=== PATIENT | male | born 1970 | race Caucasian/White ===

== ENCOUNTER 2017-05-23 13:20 | Inpatient (IN) | payer OTHER ==
[~2017-05-23] VITALS: Ht 165.1 cm; Wt 75.5 kg
[~2017-05-23 13:20] MED LIST: Bactrim,Septra DS 80 PO; DAZIDOX20 MG PO; DILAUDID2 MG PO; EXALGO8 MG PO; Exalgo PO; FLOMAX0.4 MG PO; LANTUS 10100 UNITS/ SC; LANTUS 3 M100 UNITS1 SC; NAPROSYN500 MG PO; NOVOLOG 10100 UNITS/ SQ; NovoLOG, HumaLOG SC; PERCOCET 10/1 TABLET PO; PERCOCET 5/31 TABLET PO; PROMETHAZINE HC25 M1 PO; Percocet 5/325,Endoc PO
[2017-05-23 14:25] LABS: HEMATOCRIT 41.8 % (38.0-50.0); HEMOGLOBIN 14.9 G/DL (12.5-16.6); MCH 31.5 PG (29.0-34.0); MCHC 35.6 G/DL (30.0-36.0); MCV 88.4 FL (86-99); PLATELET COUNT 218 K/uL (156-360); RBC DIS.WIDTH-CV 13.6 % (11.8-14.6); RBC DIS.WIDTH-SD 44.1 % (39-53); RED BLOOD COUNT 4.73 M/uL (4.00-5.50); WHITE BLOOD COUNT 12.5 K/uL (4.1-10.2)
[2017-05-23 14:33] LABS: ALBUMIN 4.1 g/dL (3.2-4.8); CHLORIDE 102 mEq/L (99-109); POTASSIUM 4.4 mEq/L (3.7-5.4); SODIUM 139 mEq/L (136-147)
[2017-05-23 14:36] LABS: GLUCOSE 154 mg/dL (70-99); TOTAL PROTEIN 7.4 g/dL (6.4-8.3)
[2017-05-23 14:37] LABS: TOTAL BILIRUBIN 0.5 mg/dL (0.0-1.0)
[2017-05-23 14:39] LABS: ALKALINE PHOSPHATASE 104 IU/L (3-129); CREATININE 0.8 mg/dL (0.6-1.3); GFR ESTIMATE (CALCULATED) > 59 mL/min/ (58.99-99999)
[2017-05-23 14:40] LABS: UREA NITROGEN (BUN) 11 mg/dL (9-23)
[2017-05-23 14:41] LABS: AST (GOT) 12 IU/L (2-34)
[2017-05-23 14:42] LABS: ALT (GPT) 8 IU/L (3-49)
[2017-05-23 16:45] LABS: LIPASE 709 U/L (1.0-51.0)
[2017-05-23 17:38] LABS: APPEARANCE SL.HAZY ((CLEAR)); BILIRUBIN NEGATIVE; BLOOD SMALL; COLOR YELLOW ((YELLOW)); GLUCOSE (STRIP) NEGATIVE; KETONES 20; LEUKOCYTES NEGATIVE; NITRITE NEGATIVE; PROTEIN (STRIP) 30; SPECIFIC GRAVITY 1.021 (1.000-1.030); UROBILINOGEN 0.2 MG/DL (0.2-1.0)
[2017-05-23 17:47] LABS: BACTERIA NONE SEEN /HPF; EPITHELIAL CELLS RARE /HPF; HYALINE CASTS 0-5 /LPF; MUCUS TRACE /LPF; RED BLOOD CELLS 40-50 /HPF (0-5); UCUL ADDED? NO; WHITE BLOOD CELLS 0-5 /HPF (0-5)
[2017-05-23] MEDS ORDERED: LITE COAT ASPI325 M1 PO (20:38)
[2017-05-23] MEDS ORDERED: NOVOLOG PE100 UNITS/ SC (20:38)
[2017-05-23] MEDS ORDERED: VISINE A.C300 DROP/1 BOTH EYES (20:38)
[2017-05-23] MEDS ORDERED: ZOFRAN8 MG PO (20:39)
[2017-05-23] MEDS ORDERED: PERCOCET 10/1 TABLET PO (20:39)
[2017-05-23] MEDS ORDERED: ADVIL200 MG PO (20:39)
[2017-05-23] MEDS ORDERED: VYTORIN 10/41 TABLET PO (20:40)
[2017-05-23] MEDS ORDERED: ZESTRIL10 MG PO (20:40)
[2017-05-23] MEDS ORDERED: CELEXA20 MG PO (20:41)
[2017-05-23 22:20] VITALS: BP 148/69
[2017-05-24 00:30] VITALS: BP 168/79
[2017-05-24 04:09] VITALS: BP 149/65
[2017-05-24 06:58] LABS: HEMATOCRIT 34.3 % (38.0-50.0); MCH 30.4 PG (29.0-34.0); MCHC 33.5 G/DL (30.0-36.0); MCV 90.7 FL (86-99); RBC DIS.WIDTH-CV 13.9 % (11.8-14.6); RBC DIS.WIDTH-SD 46.6 % (39-53); WHITE BLOOD COUNT 7.5 K/uL (4.1-10.2)
[2017-05-24 07:00] LABS: PLAT.SUFFICIENCY DECREASED
[2017-05-24 07:02] LABS: CHLORIDE 107 MEQ/L (99-109); CREATININE 0.6 MG/DL (0.6-1.3); GFR ESTIMATE (CALCULATED) > 59 mL/min/ (58.99-99999); GLUCOSE 150 mg/dL (70-99); HEMOGLOBIN 11.5 G/DL (12.5-16.6); PLATELET COUNT 144 K/uL (156-360); POTASSIUM 3.6 MEQ/L (3.7-5.4); RED BLOOD COUNT 3.78 M/uL (4.00-5.50); SODIUM 138 MEQ/L (136-147); UREA NITROGEN (BUN) 9 mg/dL (9-23)
[2017-05-24 09:35] VITALS: BP 112/63
[2017-05-24 10:08] LABS: AMYLASE 66 IU/L (1-118)
[2017-05-24 10:14] LABS: LIPASE 87 U/L (1.0-51.0)
[2017-05-24 19:26] VITALS: BP 119/61
[2017-05-24 23:38] VITALS: BP 116/56
[2017-05-25 06:00] LABS: HEMOGLOBIN 10.8 G/DL (12.5-16.6); MCH 30.4 PG (29.0-34.0); MCHC 32.7 G/DL (30.0-36.0); PLATELET COUNT 121 K/uL (156-360); RBC DIS.WIDTH-CV 13.9 % (11.8-14.6); RBC DIS.WIDTH-SD 47.6 % (39-53); RED BLOOD COUNT 3.55 M/uL (4.00-5.50); WHITE BLOOD COUNT 5.7 K/uL (4.1-10.2)
[2017-05-25 07:01] VITALS: BP 135/78
[2017-05-25 07:07] LABS: CHLORIDE 113 MEQ/L (99-109); CREATININE 0.8 MG/DL (0.6-1.3); GFR ESTIMATE (CALCULATED) > 59 mL/min/ (58.99-99999); LIPASE 19 U/L (1.0-51.0); POTASSIUM 3.8 MEQ/L (3.7-5.4); SODIUM 141 MEQ/L (136-147); UREA NITROGEN (BUN) 9 mg/dL (9-23)
[2017-05-25 07:10] LABS: AMYLASE 39 IU/L (1-118); GLUCOSE 110 mg/dL (70-99)
[2017-05-25 11:10] VITALS: BP 111/59
[2017-05-25 15:40] VITALS: BP 122/67
[2017-05-25 19:02] VITALS: BP 120/58
[2017-05-26 05:47] LABS: BASOPHIL COUNT 0.1 K/uL (0-0.1); EOSINOPHIL (%) 1.8 % (0-5); EOSINOPHIL COUNT 0.1 K/uL (0-0.3); HEMATOCRIT 31.9 % (38.0-50.0); HEMOGLOBIN 10.6 G/DL (12.5-16.6); IMMATURE GRANULOCYTE (%) 0.3 % (0.0-0.7); LYMPHOCYTE COUNT 3.7 K/uL (1.0-2.8); MCH 30.7 PG (29.0-34.0); MCHC 33.2 G/DL (30.0-36.0); MCV 92.5 FL (86-99); MONOCYTE (%) 7.8 % (3-12); MONOCYTE COUNT 0.6 K/uL (0-0.8); NEUTROPHIL (%) 38.1 % (45-76); NEUTROPHIL COUNT 2.8 K/uL (1.8-6.4); PLATELET COUNT 131 K/uL (156-360); RBC DIS.WIDTH-CV 13.7 % (11.8-14.6); RBC DIS.WIDTH-SD 46.3 % (39-53); RED BLOOD COUNT 3.45 M/uL (4.00-5.50); WHITE BLOOD COUNT 7.2 K/uL (4.1-10.2)
[2017-05-26 06:13] LABS: CHLORIDE 108 MEQ/L (99-109); CREATININE 0.9 MG/DL (0.6-1.3); GFR ESTIMATE (CALCULATED) > 59 mL/min/ (58.99-99999); GLUCOSE 108 mg/dL (70-99); POTASSIUM 4.2 MEQ/L (3.7-5.4); SODIUM 137 MEQ/L (136-147); UREA NITROGEN (BUN) 14 mg/dL (9-23)
[2017-05-26 07:37] VITALS: BP 123/68
[2017-05-26 08:38] LABS: HEMOGLOBIN A1c (GLYCOHEMOGLOB) 6.8 % (Below 5.7)
[2017-05-26 11:51] VITALS: BP 123/68
[2017-05-26] MEDS ORDERED: PERCOCET 10/1 TABLET PO ×2 (12:29→13:11)
[2017-05-26] MEDS ORDERED: CILOSTAZOL100 MG PO (12:30)
[2017-05-26] MEDS ORDERED: METOCLOPRAMIDE H5 MG PO (12:30)
[2017-05-26] MEDS ORDERED: OMEPRAZOLE20 MG PO (12:31)
[2017-05-26] MEDS ORDERED: LANTUS 3 M100 UNITS1 SC (12:34)
== END 2017-05-26 13:48 | disposition home or self-care (01) | DRG 439 ==
LOC: EME 13:20 → 5EAST 19:20 → EDOF 19:20 → ENRESERV 19:24 → 5EAST 22:20
PROVIDERS: Hospitalist; Internal Medicine; Physician Assistant Medical
PROC: 0DB68ZX Excision of Stomach, Via Natural or Artificial Opening Endoscopic, Diagnostic (ICD-10-PCS; principal; 2017-05-25)
DX: K85.80 Other acute pancreatitis without necrosis or infection (principal); K86.1 Other chronic pancreatitis; E86.0 Dehydration; N20.2 Calculus of kidney with calculus of ureter; K26.9 Duodenal ulcer, unspecified as acute or chronic, without hemorrhage or perforation; K29.80 Duodenitis without bleeding; R74.8 Abnormal levels of other serum enzymes; E10.43 Type 1 diabetes mellitus with diabetic autonomic (poly)neuropathy; K31.84 Gastroparesis; E10.51 Type 1 diabetes mellitus with diabetic peripheral angiopathy without gangrene; I10 Essential (primary) hypertension; G89.29 Other chronic pain; M79.604 Pain in right leg; M79.605 Pain in left leg; E78.5 Hyperlipidemia, unspecified; R63.4 Abnormal weight loss; R68.81 Early satiety; F32.9 Major depressive disorder, single episode, unspecified; F17.210 Nicotine dependence, cigarettes, uncomplicated; Z79.82 Long term (current) use of aspirin; Z79.891 Long term (current) use of opiate analgesic; Z82.49 Family history of ischemic heart disease and other diseases of the circulatory system; Z86.79 Personal history of other diseases of the circulatory system; Z87.442 Personal history of urinary calculi
CPT/HCPCS: 74019; 74177; 80048; 80053; 81003; 82150; 82948; 83036; 83690; 85025; 85027; 88305; 88342 TC; 93925; 99281; 99285; C9113; J1644; J2270; J2405; J3010; J7030; J7042

== ENCOUNTER → 2017-06-18 | Outpatient (CLI) | payer OTHER, MEDICARE ==
[~2017-06-18] MED LIST changes: +ADVIL200 MG PO; +CELEXA20 MG PO; +CILOSTAZOL100 MG PO; +LITE COAT ASPI325 M1 PO; +METOCLOPRAMIDE H5 MG PO; +MS CONTIN,ORAMO15 M1 PO; +NEURONTIN400 MG PO; +NOVOLOG PE100 UNITS/ SC; +OMEPRAZOLE20 MG PO; +PRILOSEC20 MG PO; +REGLAN5 MG PO; +VISINE A.C300 DROP/1 BOTH EYES; +VYTORIN 10-801 EACH PO; +ZESTRIL10 MG PO; +ZOFRAN8 MG PO
== END | disposition home or self-care (01) ==
LOC: CDC 10:15
DX: Z01.810 Encounter for preprocedural cardiovascular examination (principal); I25.10 Atherosclerotic heart disease of native coronary artery without angina pectoris; R00.0 Tachycardia, unspecified; R94.31 Abnormal electrocardiogram [ECG] [EKG]
CPT/HCPCS: 93000

== ENCOUNTER 2017-06-21 22:08 | Inpatient (IN) | payer OTHER ==
[~2017-06-21] VITALS: Ht 165.1 cm; Wt 77.8 kg
[2017-06-22 12:56] VITALS: BP 159/88
[2017-06-22 20:09] VITALS: BP 130/81
[2017-06-22 20:15] VITALS: BP 130/81
[2017-06-22 20:30] VITALS: BP 130/81
[2017-06-22 23:34] VITALS: BP 139/83
[2017-06-23] VITALS (7 sets, daily range): BP systolic 87–150; BP diastolic 51–84
[2017-06-23 06:07] LABS: HEMATOCRIT 35.2 % (38.0-50.0); MCH 30.2 PG (29.0-34.0); MCHC 32.4 G/DL (30.0-36.0); MCV 93.4 FL (86-99); PLATELET COUNT 151 K/uL (156-360); RBC DIS.WIDTH-CV 13.2 % (11.8-14.6); RBC DIS.WIDTH-SD 45.5 % (39-53); RED BLOOD COUNT 3.77 M/uL (4.00-5.50)
[2017-06-23 06:10] LABS: HEMOGLOBIN 11.4 G/DL (12.5-16.6)
[2017-06-24] VITALS (7 sets, daily range): BP systolic 102–172; BP diastolic 68–90
[2017-06-25 05:55] VITALS: BP 162/89
[2017-06-25 08:09] VITALS: BP 171/92
[2017-06-25 11:15] VITALS: BP 118/69
[2017-06-25 15:53] VITALS: BP 120/72
[2017-06-26 00:14] VITALS: BP 133/88
[2017-06-26 07:40] VITALS: BP 121/77
[2017-06-26 15:57] VITALS: BP 126/82
[2017-06-26 23:27] VITALS: BP 116/62
[2017-06-27 08:01] VITALS: BP 121/74
[2017-06-27 15:39] VITALS: BP 113/60
[2017-06-27 23:16] VITALS: BP 103/55
[2017-06-28 08:13] VITALS: BP 117/71
[2017-06-28 16:04] VITALS: BP 158/80
[2017-06-28 23:38] VITALS: BP 114/55
[2017-06-29 09:30] VITALS: BP 96/54
[2017-06-29 12:44] VITALS: BP 108/55
[2017-06-29 17:15] VITALS: BP 115/60
[2017-06-29 21:06] VITALS: BP 99/57
[2017-06-30 00:37] VITALS: BP 100/60
[2017-06-30 07:17] VITALS: BP 91/50
[2017-06-30 16:37] VITALS: BP 98/62
[2017-06-30] MEDS ORDERED: MORPHINE SULFAT15 M1 PO (17:21)
[2017-06-30] MEDS ORDERED: OXYCODONE HCL10 MG PO (17:21)
[2017-06-30] MEDS ORDERED: LYRICA200 MG PO (17:22)
[2017-06-30] MEDS ORDERED: PERCOCET 10/1 TABLET PO (18:43)
== END 2017-07-01 07:30 | disposition home or self-care (01) | DRG 241 ==
LOC: ENRESERV 22:08 → 3EAST 06-22 11:56 → 2SOUTH 06-22 11:56 → ENRESERV 06-22 16:04 → 3EAST 06-22 20:00
PROVIDERS: Surgery
PROC: 0Y6J0Z1 Detachment at Left Lower Leg, High, Open Approach (ICD-10-PCS; principal; 2017-06-22)
DX: I70.222 Atherosclerosis of native arteries of extremities with rest pain, left leg (principal); E11.51 Type 2 diabetes mellitus with diabetic peripheral angiopathy without gangrene; G54.6 Phantom limb syndrome with pain; E11.42 Type 2 diabetes mellitus with diabetic polyneuropathy; M79.672 Pain in left foot; G89.29 Other chronic pain; I10 Essential (primary) hypertension; Z87.891 Personal history of nicotine dependence; Z79.899 Other long term (current) drug therapy
CPT/HCPCS: 82948; 85027; 88307; 93005; 97530 GO; 97530 GP; J0330; J0690; J1170; J1650; J1815; J1885; J2250; J2405; J2795; J3010; J7120

== ENCOUNTER 2017-09-11 15:32 | Inpatient (IN) | payer OTHER ==
[~2017-09-11] VITALS: Ht 170.2 cm; Wt 75.4 kg
[~2017-09-11 15:32] MED LIST changes: +LYRICA200 MG PO; +MORPHINE SULFAT15 M1 PO; -NEURONTIN400 MG PO; +NEURONTIN800 MG PO; +OXYCODONE HCL10 MG PO; -ZESTRIL10 MG PO; +ZESTRIL20 MG PO
[2017-09-11 16:47] LABS: CARBON DIOXIDE (BICARBONATE) 18.6 MEQ/L (20-31)
[2017-09-11 16:49] LABS: INTER. NORMALIZED RATIO 1.1
[2017-09-11 16:50] LABS: BASOPHIL (%) 0.4 % (0-1); BASOPHIL COUNT 0.1 K/uL (0-0.1); EOSINOPHIL (%) 0.3 % (0-5); EOSINOPHIL COUNT 0.1 K/uL (0-0.3); HEMOGLOBIN 13.2 G/DL (12.5-16.6); IMMATURE GRANULOCYTE (%) 2.2 % (0.0-0.7); LYMPHOCYTE (%) 11.2 % (15-42); LYMPHOCYTE COUNT 2.4 K/uL (1.0-2.8); MCH 30.9 PG (29.0-34.0); MCHC 34.7 G/DL (30.0-36.0); MONOCYTE COUNT 1.7 K/uL (0-0.8); NEUTROPHIL (%) 77.9 % (45-76); NEUTROPHIL COUNT 16.4 K/uL (1.8-6.4); PLATELET COUNT 114 K/uL (156-360); RBC DIS.WIDTH-CV 13.2 % (11.8-14.6); RBC DIS.WIDTH-SD 42.6 % (39-53); RED BLOOD COUNT 4.27 M/uL (4.00-5.50); WHITE BLOOD COUNT 21.1 K/uL (4.1-10.2)
[2017-09-11 17:01] LABS: CHLORIDE 104 mEq/L (99-109); POTASSIUM 4.1 mEq/L (3.7-5.4); SODIUM 137 mEq/L (136-147)
[2017-09-11 17:03] LABS: GLUCOSE 162 mg/dL (70-99)
[2017-09-11 17:06] LABS: SERUM ETHYL ALCOHOL < 10 mg/dL
[2017-09-11 17:07] LABS: CREATININE 0.8 mg/dL (0.6-1.3); GFR ESTIMATE (CALCULATED) > 59 mL/min/ (58.99-99999)
[2017-09-11 17:08] LABS: UREA NITROGEN (BUN) 11 mg/dL (9-23)
[2017-09-11 17:09] LABS: CREATINE KINASE 30 IU/L (1-294)
[2017-09-11 17:12] LABS: TROP-I INTERPRETATION NEGATIVE; TROPONIN-I < 0.01 ng/mL (0.0-0.30)
[2017-09-11 18:22] LABS: APPEARANCE CLEAR ((CLEAR)); BILIRUBIN NEGATIVE; BLOOD NEGATIVE; COLOR YELLOW ((YELLOW)); GLUCOSE (STRIP) >=500; KETONES 5; LEUKOCYTES NEGATIVE; NITRITE NEGATIVE; PROTEIN (STRIP) NEGATIVE; SPECIFIC GRAVITY 1.016 (1.000-1.030); UCUL ADDED? NO; UROBILINOGEN 0.2 MG/DL (0.2-1.0)
[2017-09-11 18:33] LABS: AMPHETAMINE NEGATIVE (500 ng/mL); BARBITURATES NEGATIVE (200 ng/mL); BENZODIAZEPINES NEGATIVE (150 ng/mL); BUPRENORPHINE NEGATIVE (10 ng/mL); COCAINE NEGATIVE (150 ng/mL); METHADONE NEGATIVE (200 ng/mL); METHAMPHETAMINE NEGATIVE (500 ng/mL); OPIATES (MORPHINE) NEGATIVE (100 ng/mL); OXYCODONE PRESUMPTIVE POSITIVE (100 ng/mL); PHENCYCLIDINE NEGATIVE (25 ng/mL); PROPOXYPHENE NEGATIVE (300 ng/mL); THC CANNABINOIDS NEGATIVE (50 ng/mL); TRICYCLIC ANTIDEPRESSANTS NEGATIVE (300 ng/mL)
[2017-09-11 18:55] LABS: C-REACTIVE PROTEIN 4.6 MG/L (0-10)
[2017-09-11 18:56] LABS: ALBUMIN 3.3 g/dL (3.2-4.8)
[2017-09-11 18:59] LABS: TOTAL PROTEIN 5.5 g/dL (6.4-8.3)
[2017-09-11 19:01] LABS: TOTAL BILIRUBIN 0.5 mg/dL (0.0-1.0)
[2017-09-11 19:02] LABS: ALKALINE PHOSPHATASE 90 IU/L (3-129)
[2017-09-11 19:04] LABS: AST (GOT) 11 IU/L (2-34); DIRECT BILIRUBIN 0.2 mg/dL (0.0-0.3)
[2017-09-11 19:05] LABS: ALT (GPT) 11 IU/L (3-49); LIPASE 7 U/L (1.0-51.0)
[2017-09-11 20:28] LABS: ERTH.SED.RATE 10 MM/HR (0-15)
[2017-09-11] MEDS ORDERED: LEXAPRO10 MG PO (20:54)
[2017-09-11] MEDS ORDERED: PROTONIX40 MG PO (20:55)
[2017-09-12 02:45] VITALS: BP 153/80
[2017-09-12 02:50] VITALS: BP 153/80
[2017-09-12 08:33] LABS: HEMATOCRIT 33.6 % (38.0-50.0); HEMOGLOBIN 11.3 G/DL (12.5-16.6); MCH 30.2 PG (29.0-34.0); MCHC 33.6 G/DL (30.0-36.0); MCV 89.8 FL (86-99); PLATELET COUNT 101 K/uL (156-360); RBC DIS.WIDTH-CV 13.3 % (11.8-14.6); RBC DIS.WIDTH-SD 43.6 % (39-53); RED BLOOD COUNT 3.74 M/uL (4.00-5.50); WHITE BLOOD COUNT 8.1 K/uL (4.1-10.2)
[2017-09-12 08:51] VITALS: BP 140/67
[2017-09-12 10:46] LABS: CHLORIDE 114 MEQ/L (99-109); CREATININE 0.7 MG/DL (0.6-1.3); GFR ESTIMATE (CALCULATED) > 59 mL/min/ (58.99-99999); GLUCOSE 205 mg/dL (70-99); POTASSIUM 3.9 MEQ/L (3.7-5.4); SODIUM 142 MEQ/L (136-147); UREA NITROGEN (BUN) 6 mg/dL (9-23)
[2017-09-12 12:01] VITALS: BP 106/54
[2017-09-12 14:27] LABS: INTER. NORMALIZED RATIO 1.1
== END 2017-09-12 15:08 | disposition short-term general hospital (02) | DRG 300 ==
LOC: EME 15:32 → EDOF 09-12 01:27 → ENRESERV 09-12 01:28 → 4EAST 09-12 02:35
PROVIDERS: Emergency Medicine; Hospitalist
DX: E11.51 Type 2 diabetes mellitus with diabetic peripheral angiopathy without gangrene (principal); E11.42 Type 2 diabetes mellitus with diabetic polyneuropathy; I70.92 Chronic total occlusion of artery of the extremities; I70.301 Unspecified atherosclerosis of unspecified type of bypass graft(s) of the extremities, right leg; I70.201 Unspecified atherosclerosis of native arteries of extremities, right leg; E87.2 Acidosis; R20.0 Anesthesia of skin; R68.0 Hypothermia, not associated with low environmental temperature; D69.6 Thrombocytopenia, unspecified; I10 Essential (primary) hypertension; I25.10 Atherosclerotic heart disease of native coronary artery without angina pectoris; E78.5 Hyperlipidemia, unspecified; G89.29 Other chronic pain; M54.40 Lumbago with sciatica, unspecified side; F32.9 Major depressive disorder, single episode, unspecified; F41.9 Anxiety disorder, unspecified; F17.210 Nicotine dependence, cigarettes, uncomplicated; Z89.512 Acquired absence of left leg below knee; Z86.73 Personal history of transient ischemic attack (TIA), and cerebral infarction without residual deficits; Z87.11 Personal history of peptic ulcer disease
CPT/HCPCS: 71045; 72132; 74177; 80048; 80076; 81003; 82010; 82550; 82803; 82948; 83605; 83690; 83930; 84484; 85025; 85027; 85610; 85651; 85730; 86140; 87040; 93005; 93926; G0480; J2543; J3010; J3370; J7030; J7050